=== PATIENT | female | born 1985 | race Caucasian/White ===

== ENCOUNTER 2024-03-10 13:28 | Outpatient (AMB) | payer OTHER, SELFPAY ==
[2024-03-10 13:29] VITALS: BP 102/67; PULSE 98; O2SAT 98; BMI 23.5
--- NOTE | 2024-03-10 13:29 | A.OFFVIS_ITS ---
Vital Signs 03/10/24 13:29 Height 5 ft 3 in Weight 132 lb 9.349 oz BMI 23.5 BP 102/67 Blood Pressure Location Lt brachial Position Sitting Pulse 98 Pulse Source Doppler Pulse Oximetry (%) 98 Oxygen Delivery Method Room Air Intake Visit Reasons: bertha Allergies No Known Allergies Allergy (Verified 03/10/24 13:32) HPI Comments Details: The patient is here for pulmonary evaluation. The patient is a 38-year-old woman who has been. Stay healthy until recently when she started noticing episodes of hypoxia primarily on her smart watch. The patient has been having daytime drowsiness and snoring so therefore she did undergo a sleep study back in 2022. At that point she was overweight. She has lost already like 30 lb since then. She is still having daytime drowsiness her Glen score is elevated 02/01. She became concerned also because she had evidence of hypoxia during the sleep study. I did reassure her that it is normal to get some degree hypoxia at nighttime. In the meantime the patient on exam does have some clubbing. We did talk about the accuracy of pulse oximeter through her smart watch and will try to find another way to confirm it. In the meantime we did go for brief walking oximetry. The heart rate did increase to about 116 but her pulse ox was stable at 98%. We also had her lay down and check her oximetry and ruled out orthodeoxia. [facility], LAT[facility] Medical History (Updated 03/10/24 @ 14:04 by Sang Andre MD) High dependence on smoking BERTHA (obstructive sleep apnea) Hypoxia Social History (Updated 03/10/24 @ 13:33 by MARI Chaves) Patient Tobacco Use Status: Current everyday Tobacco user Tobacco use type: Cigarette Cigarettes Per Day: 12 Review of Systems Const Reports daytime sleepiness, Reports snoring and Reports weight loss Eyes Reports no additional complaints ENT Reports nasal congestion Card Denies chest pain and Reports palpitations Resp Reports snoring and Denies wheezing GI Reports no additional complaints Musc Reports no additional complaints Skin/Breast Denies rash Neuro Reports no additional complaints Endo Reports palpitations Peter/Lymph Reports no additional complaints Aller/Immun Denies wheezing Physical Exam Vital Signs: Last Vital Signs Pulse 98 03/10/24 13:29 BP 102/67 03/10/24 13:29 Pulse Ox 98 03/10/24 13:29 Oxygen Delivery Method Room Air 03/10/24 13:29 BMI result Body Mass Index 23.5 Const General: comfortable HEENT Head: Yes normocephalic Neck Neck: Yes supple Chest Chest palpation & inspection: normal inspection of the chest Resp Effort & Inspection: normal respiratory effort Auscultation: clear to auscultation bilaterally Cardio Heart sounds: S1 normal heart sound present, S2 normal heart sound present and no murmurs GI Palpation (GI): Soft to palpation Skin General skin exam: no rashes or lesions noted Extrem General: Yes clubbing, No cyanosis and No edema Assessment & Plan Assessment & Plan (1) Hypoxia: Code(s): R09.02 - Hypoxemia Category: Medical (2) BERTHA (obstructive sleep apnea): Code(s): G47.33 - Obstructive sleep apnea (adult) (pediatric) Category: Medical (3) High dependence on smoking: Code(s): F17.200 - Nicotine dependence, unspecified, uncomplicated Category: Medical Plan Home sleep study ECHO with bubble to r/o R->L shunt CXR smoking cessation, she will start cutting down F/U 2 months Orders: Orders CA echo transthoracic complete 03/10/24 I27.20 - Pulmonary hypertension, unspecified RT home sleep study 03/10/24 G47.33 - Obstructive sleep apnea (adult) (pediatric), R09.02 - Hypoxemia XR chest 2V 03/10/24 G47.33 - Obstructive sleep apnea (adult) (pediatric), R09.02 - Hypoxemia Coding Level of Care Code New Pt Level 4 (61337) Diagnoses Hypoxia R09.02 BERTHA (obstructive sleep apnea) G47.33 High dependence on smoking F17.200 Time Spent (min) 40
--- OUTSIDE RECORDS SUMMARY | 2024-03-10 13:30 | XMS_ITS ---
Author Organization [facility] Address [address] [place] [address] Care Team Providers Care Bookbinder Apprentice Name Role Phone Geri NORMAN, Robert Primary Care Provider Unavail Adrianne Mitchell Unavailable [phone] Allergies No Known Allergies REASON FOR VISIT PCP-12/01, Open sore - Toe Medications Medication SIG (Take, Route, Frequency, Duration) Notes Start Date End Date Status clonazePAM 0.5 MG 1 tablet at bedtime Orally Once a day Not-Taking Famciclovir 500 MG 1 tablet Orally Twic e a day for 10 day(s) Active Escitalopram Oxalate 10 MG 1 tablet Orally Once a day for 30 day(s) Not-Taking Fluoxetine Active Social History Tobacco Use: Social History Observation Description Date Details (start date - stop date) Current Smoker 03/11/1999 - NA Tobacco Use/Smoking Question Answer Notes Are you a: current smoker When did you start smoking? 03/11/1999 Additional Findings: Tobacco User Moderate cigar ette smoker (10-19 cigs/day) Alcohol Screen Question Answer Notes Did you have a drink containing alcohol in the p ast year? No Points 0 Interpretation Negative Tobacco use other than smoking: Question Answer Notes Are you an other tobacco user? No Vital Signs Height 5 ft 3 in in 09/28/2022 Weight 157 lbs 09/28/2022 BMI 27.81 kg/m2 09/28/2022 Encounters Encounter Location Date Provider Diagnosis [facility] [address] [place] [address] 09/28/2022 Adrianne Matias Skin ulcer of toe of left foot, limited to breakdown of skin L97.521 Assessments Encounter Date Diagnosis (ICD Code) Assessment Notes Treatment Notes Treatment Clinical Notes Section Notes 09/28/2022 Skin ulcer of toe of left foot, limited to breakdown of skin (ICD-10 - L97.521) Patient Educated with: WOUND CARE INSTRUCTIONS.p df (WOUND CARE INSTRUCTIONS.p df) 09/28/2022 Other Plan Of Treatment Treatment Notes Assessment Notes Skin ulcer of toe of left fo ot, limited to breakdown of skin Patient Educated with: WOUND CARE INSTRUCTIONS.pdf (WOUND CARE INSTRUCTIONS.pdf) Next Appt Details Follow Up: prn, Reason: Procedure Notes * Category Sub-Category Detail Notes Debride skin< 25 sq cm Open wound Physician of record performed open wound selective debridement of first 25 sq cm or less, of devitilized necrotic/nonviable soft tissue, fibrin, and exudate extending from the epidermis through the dermis, utilizing sharp dissection with sterile 15 blade, and/or tissue nippers. Sterile antibiotic dressing applied, ANESTHESIA- was DEFERRED, Pt tolerant to pain, Hemostasis was achieved through direct pressure. Post debridement measurements: 2 mm x 1 mm x 2 mm. Character of the wound post debridement is stable (73951) , The patient is to cont the local wound care as directed till condition is completely healed Progress Notes * Alethea ARCEDOB:[birth year] (37 yo F)Acc No.[id number]:09/28/2022 Progress Notes Patient:?Alethea Arce Provider:?Adrianne Matias DPM :1985???Age:37 Y???Sex:Female D ate:09/28/2022 Address:[address] [place] [address], [place], [id number] Pcp:Robert Nevarez MD Subjective: * Chief Complaints: * ???PCP-12/01Open sore - Toe * HPI: ???Skin problems:?Treatments:?soaks , Topical abx.? * ROS:?General/Constitutional:?Nausea?denies.?Vomiting?denies.?Hunger Thirst?denies.?Loss appetite?denies.?Chills?denies.?Fatigue?denies.?Fever?denies.?Night Sweats?denies.?Unexplained weight loss?denies.?Unexplained weight gain?denies.?HEENTM:?Dentures?denies.?Dizziness?denies.?Glasses/contacts?denies.?Retinopathy?de nies.?Blurred/double vision?denies.?TMJ?denies.?Discharge/drainage?denies.?Implants?denies.?Sore throat?denies.?Dental implants?denies.?Hard of hearing ?denies.?Difficulty chewing/swallowing/speaking?denies.?Nose bleeds?denies.?Sore mouth?denies.?Respiratory:?On Oxygen?denies.?Pneumonia/pleurisy?denies.?Bronchitis?denies.?Emphysema?denies.?C oughing?denies.?Cough blood?denies.?Shortness of breath?denies.?Wheezing?denies.?Cardiovascular:?Pacemaker?denies.?MVP?denies.?WPW?denies.?CHF?denies.?Heart attack?denies.?Septal defect?denies.?Rapid beat?denies.?Chest pain ?denies.?Atrial Fib.?denies.?Murmur/Palpitations?denies.?Gastrointestinal:?Hemorrhoids?denies.?Stomach/Abdominal pain?denies.?Dark blood stool?denies.?Irritable bowel ?denies.?Constipation?denies.?Diarrhea?denies.?Hematology:?Swelling?denies.?Clots?denies.?Varicose Veins?denies.?Bruising?denies.?Bleeding problem?denies.?Genitourinary:?Blood urine?denies.?Frequent/Painfu/urination/bladder control?denies.?Kidney stones?denies.?Infection (UTI)?denies.?Nephropathy?denies.?sex trans dis (STD)?denies.?Prostate?denies.?Musculoskeletal:?Hammertoes?denies.?Bunions?denies.?Back Pain?denies.?Muscle Cramps/ Resting?denies.?Muscle cramps / walking?denies.?Generalized aches and pains?denies.?Weakness?denies.?Integ.:?Milton?denies.?Scars?denies.?Corns/calluses?denies.?Ingrown nails?denies.?Painful nails?denies.?Open Sores?denies.?Rashes?denies.?Neurologic:?Difficulty sleeping?denies.?Brain disorder?denies.?Numbness?denies.?Balance trouble?denies.?Confusion?denies.?Fainting/blackouts?denies.?Tingling?denies.?Tr emors?denies.? * Medical History:? * Surgical History:?Denies Pas t Surgical History * Hospitalization/Major Diagno stic Procedure:?Denies Past Hospitalization * Family History:?Mother: karey singleton?Maternal Grand Mother: diagnosed with Unspecified essential hypertension.?Maternal Grand Father: diagnosed with Diabetic - NIDDM, Unspecified essential hypertension.? * Social History:?Tobacco Use:?Tobacco Use/Smoking?Are you a:?current smoker ?When did you start smoking??03/11/1999 ?Additional Findings: Tobacco User?Moderate cigarette smoker (10-19 cigs/day) ?Tobacco use other than smoking?Are you an other tobacco user??No ???Drugs/Alcohol:?Drugs?Have you used drugs other than those for medical reasons in the past 12 months??No ?Alcohol Screen?Did you have a drink containing alcohol in the past year??No ?Points?0 ?Interpretation?Negative ???Miscellaneous:?Caffeine: yes, frequency:, 2-3 cups per day. ?Children: yes, 2. ?no Exercise. ?Marital status: partner. ?Occupation: Homemaker. * Medications:?TakingFluoxetin e Famciclovir 500 MG Tablet 1 tablet Orally Twice a dayTaking Fluoxetine Taking Famciclovir 500 MG Tablet 1 tablet Orally Twice a dayNot-Taking/PRNclonazePAM 0.5 MG Tablet 1 tablet at bedtime Orally Once a dayEscitalopram Oxalate 10 MG Tablet 1 tablet Orally Once a dayMedication List reviewed and reconciled with the patientNot-Taking/PRN clonazePAM 0.5 MG Tablet 1 tablet at bedtime Orally Once a dayNot-Taking/PRN Escitalopram Oxalate 10 MG Tablet 1 tablet Orally Once a dayMedication List reviewed and reconciled with the patient * Allergies:?N.K.D.A.yes[Aller gies Verified] Objective: * Vitals:?Ht: 5 ft 3 in, Wt:15 7, BMI:27.81, Shoe size: 7, Ht-cm: 160.02 cm, Wt-k.21 kg. * Examination: ???Dermatologic: ?ULCER:? LOCATION, medial TA, SIZE, 3 mm X 1 mm X 2mm, BASE, granular, RIM, hyperkeratotic, UNDERMINING, absent, TRACKING, Full thickness breakdown of skin, DRAINAGE, serosanguineous, mild, NECROTIC TISSUE, loosely-adherent, yellow slough, MALODOR, absent, CALOR, absent, ERYTHEMA, absent, PAIN ON PALPATION, none.? Assessment: * Assessment: 1.?Skin ulcer of toe of left foot, limited to breakdown of skin - L97.521, Response to treatment? Plan: * Treatment: * Procedures:?Debride skin< 25 sq cm:?Open wound?Physician of record performed open wound selective debridement of first 25 sq cm or less, of devitilized necrotic/nonviable soft tissue, fibrin, and exudate extending from the epidermis through the dermis, utilizing sharp dissection with sterile 15 blade, and/or tissue nippers. Sterile antibiotic dressing applied, ANESTHESIA- was DEFERRED, Pt tolerant to pain, Hemostasis was achieved through direct pressure. Post debridement measurements: 2 mm x 1 mm x 2 mm. Character of the wound post debridement is stable (58459) , The patient is to cont the local wound care as directed till condition is completely healed.? * Procedure Codes:?77527 ACTIV E WOUND CARE/20 CM OR <, Modifiers: XS * Preventive Medicine:? ??Counseling:?Ulcer:?Plan Of Care reviewed with the Pt, The patient was instructed on importance of proper wound care consisting of pressure reduction, maintainance of moist wound environment, The patient is to cleanse the wound with warm soapy water/peroxide/saline or betadine BID based on product availability , The patient is to apply Antibiotic Oint. to the wound and cover with a DSD , The patient was instructed to change dressings according to orders or PRN saturation, leaks, The patient was instructed to monitor and report any signs or symptoms of infection or any untoward reactions, Precautions Taken, Offloading/Pressure reduction via rest, cane, crutches, or knee scooter, Limited activity, Sharp debridement, Shoe modification, Padding, Topical medication as directed, Debridement frequency as indicated.? * Follow Up:?prn * Images: * Sign off status: Completed true * Provider:?Adrianne Matias DPM Date:? Generated for Abdi kumar/Michael/Krissitting on:?03/10/2024 01:30 PM EST History and Physical Notes * HPI (History of Present Illness) Category Sub-Category Detail Notes Category Not es Skin problems Treatments: soaks , Topical abx Examination Category Sub-Category Detail Notes Category Not es Dermatologic ULCER: LOCATION, medial TA, SIZE, 3 mm X 1 mm X 2mm, BASE, granular, RIM, hyperkeratotic, UNDERMINING, absent, TRACKING, Full thickness breakdown of skin, DRAINAGE, serosanguineous, mild, NECROTIC TISSUE, loosely-adherent, yellow slough, MALODOR, absent, CALOR, absent, ERYTHEMA, absent, PAIN ON PALPATION, none
--- OUTSIDE RECORDS SUMMARY | 2024-03-10 13:31 | XMS_ITS ---
Author Organization [facility] Address [address] [place] [address] Care Team Providers Care Ceramic Tile Installation Helper Name Role Phone Geri NORMAN, Robert Primary Care Provider Unavail Adrianne Mitchell Unavailable [phone] REASON FOR VISIT Booked incorrectly Encounters Encounter Location Date Provider Diagnosis [facility] [address] [place] [address] 09/13/2022 Adrianne Matias Plan Of Treatment No Information Progress Notes * Alethea ARCEDOB:[birth year] (37 yo F)Acc No.[id number]:09/13/2022 Patient:?ElsaAlethea perez :1985???Age:37 Y???Sex:Female [address] [place] [address] * true * Date:? Generated for Abdi kumar/Michael/eTransmitting on:?03/10/2024 01:30 PM EST
--- OUTSIDE RECORDS SUMMARY | 2024-03-10 13:31 | XMS_ITS ---
Author Organization [facility] Address [address] [place] [address] Care Team Providers Care Senior Stereo Compiler Team Lead Name Role Phone Geri NORMAN, Robert Primary Care Provider Unavail Adrianne Mitchell Unavailable [phone] Allergies No Known Allergies REASON FOR VISIT PCP-11/30, Ingrown nail Medications Medication SIG (Take, Route, Frequency, Duration) Notes Start Date End Date Status Escitalopram Oxalate 10 MG 1 tablet Orally Once a day for 30 day(s) Not-Taking Fluoxetine Active clonazePAM 0.5 MG 1 tablet at bedtime Orally Once a day Not-Taking Famciclovir 500 MG 1 tablet Orally Twic e a day for 10 day(s) Active Social History Tobacco Use: Social History [...] Signs Height 5 ft 3 in in 09/14/2022 Weight 157 lbs 09/14/2022 BMI 27.81 kg/m2 09/14/2022 Encounters Encounter Location Date Provider Diagnosis [facility] [address] [place] [address] 09/14/2022 Adrianne Perica Ingrown nail L60.0 and Pain in toe of left foot M79.675 Assessments Encounter Date Diagnosis (ICD Code) Assessment Notes Treatment Notes Treatment Clinical Notes Section Notes 09/14/2022 Ingrown nail (ICD-10 - L60.0) 09/14/2022 Pain in toe of left foot (ICD-10 - M79.675) Plan Of Treatment Next Appt Details Follow Up: prn, Reason: Procedure Notes * Category Sub-Category Detail Notes Matricectomy (OP NOTE) Consent The patie nt was brought to the examination room and placed on the table in a supine position. The pre/siena/postoperative course, risks, complications and alternatives were discussed, understood and accepted by the patient. No guarantees were given regarding the surgical outcome Procedure A digital prep with alcohol or betadine was performed. 3cc of 1 percent Xylocaine Plain local anesthetic was administered to the toe via digital block utilizing aseptic technique. A digital touriquet was applied. The affected toenail portion was undermined, incised and resected to the eponychium and matrix. It was noted to be significantly incurvated and hypertrophied. The nailbed and matrix were curetted and the nail groove, bed and matrix were cauterized with Phenol, 3 applications of 30 seconds each from a cotton tip applicator, no underling bone was identified. The surrounding skin was protected from the Phenol with Bacitracin ointment. The tourniquet was released and capillary fill time was intact to the digit. A sterile Bacitracin dressing was applied Disposition Disposition: The pat ient tolerated the procedure and anesthesia well and left in good condition, alert, oriented and stable in no acute distress. Local wound care instructions were discussed and dispensed. There were no complications and the prognosis is favorable, Recommended alternating/staggering Tylenol XS 2 tabs and Motrin 600mg q 6 hrs ea for discomfort, Rx narcotic postop pain meds were deferred Location Medial nail border , TA Progress Notes * CLAUDE AletheaDOB:[birth year] (37 yo F)Acc No.[id number]:09/14/2022 Progress Notes Patient:?Alethea Hunter Provider:?Adrianne Matias DPM :1985???Age:37 Y???Sex:Female D ate:09/14/2022 Address:[address] [place] [address] [address], [id number] Pcp:Robert Nevarez MD Subjective: * Chief Complaints: * ???PCP-11/30Ingrown nail * HPI: ???Ingrown toenail:?Location:?Great toe , Left foot.?Course:?recurrent.?Treatments:?PNA last year.? * ROS:?General/Constitutional:?Nausea?denies.?Vomiting?denies.?Hunger Thirst?denies.?Loss appetite?denies.?Chills?denies.?Fatigue?denies.?Fever?denies.?Night Sweats?denies.?Unexplained weight loss?denies.?Unexplained [...] 2-3 cups per day. ?Children: yes, 2. ?Marital status: partner. ?Occupation: Homemaker. * Medications:?TakingFluoxetin [...] Ht-cm: 160.02 cm, Wt-k.21 kg. * Examination: ???Ingrown Nail: ?INSPECTION:?Reveals incurvation, pain on palpation, groove hypertrophy , Medial nail border , TA.? Assessment: * Assessment: 1.?Ingrown nail - L60.0?2.?P ain in toe of left foot - M79.675? Plan: * Treatment: * Procedures:?Matricectomy (OP NOTE):?Location?Medial nail border , TA.?Consent?The patient was brought to the examination room and placed on the table in a supine position. The pre/siena/postoperative course, risks, complications and alternatives were discussed, understood and accepted by the patient. No guarantees were given regarding the surgical outcome.?Procedure?A digital prep with alcohol or betadine was performed. 3cc of 1 percent ?Xylocaine Plain local anesthetic was administered to the toe via digital block utilizing aseptic technique. A digital touriquet was applied. The affected toenail portion was undermined, incised and resected to the eponychium and matrix. It was noted to be significantly incurvated and hypertrophied. The nailbed and matrix were curetted and the nail groove, bed and matrix were cauterized with Phenol, 3 applications of 30 seconds each from a cotton tip applicator, no underling bone was identified. The surrounding skin was protected from the Phenol with Bacitracin ointment. The tourniquet was released and capillary fill time was intact to the digit. A sterile Bacitracin dressing was applied .?Disposition?Disposition: The patient tolerated the procedure and anesthesia well and left in good condition, alert, oriented and stable in no acute distress. Local wound care instructions were discussed and dispensed. There were no complications and the prognosis is favorable, Recommended alternating/staggering Tylenol XS 2 tabs and Motrin 600mg q 6 hrs ea for discomfort, Rx narcotic postop pain meds were deferred.? * Procedure Codes:?15113 REMOV AL OF NAIL BED * Follow Up:?prn * Images: * Sign off status: Completed true * Provider:?Adrianne Matias, KADEEM Date:?09/2022 Generated for Abdi kumar/Michael/Elin on:?03/10/2024 01:30 PM EST History and Physical Notes * HPI (History of Present Illness) Category Sub-Category Detail Notes Category Not es Ingrown toenail Location: Great toe , Left foot Treatments: PNA last year Course: recurrent Examination Category Sub-Category Detail Notes Category Not es Ingrown Nail INSPECTION: Reveals incurvat ion, pain on palpation, groove hypertrophy , Medial nail border , TA
--- OUTSIDE RECORDS SUMMARY | 2024-03-10 13:31 | XMS_ITS | Patient Health Record ---
Author Organization [facility] [place] Address [address] [place] [address] Care Team Providers Care Coremaking Machine Operator Name Role Phone Robert Nevarez MD Primary Care Provider Unavail Adrianne Mitchell Unavailable [phone] Allergies No Known Allergies Reason For Referral No Information Medications Medication SIG (Take, Route, Frequency, Duration) [...] Are you an other tobacco user? No Problems Problem Type SNOMED Code ICD Code Onset Dates Problem Status W/U Status Risk Notes Problem [id number] Non-pressure ulcer of left lower extremity, limited to breakdown of skin (L97.921) Active confirmed Problem 22465562 Non-pressure ulcer of right lower extremity, limited to breakdown of skin (L97.911) Active confirmed Plan Of Treatment No Information Insurance Providers Payer Name Payer Address Payer Phone Subscriber Number Group Number Insured Name Patient Relationship to Insured Coverage Start Date Coverage End Date [facility] [address] [place] [address] [phone] [id number] Blake Hunter Other Medical (General) History Medical History History ICD Code Anxiety CAD (Cholesterol) Depression Psoriasis/eczema Surgical History Surgery Date(Month/Year)
== END 2024-03-10 14:02 | disposition home or self-care (01) ==
PROVIDERS: PCP Pediatrics; Visit Provider Hospitalist
DX: R09.02 Hypoxemia (principal); G47.33 Obstructive sleep apnea (adult) (pediatric); F17.200 Nicotine dependence, unspecified, uncomplicated
CPT/HCPCS: 99204

== ENCOUNTER 2024-03-10 13:28 | Outpatient (REF) | payer OTHER, SELFPAY ==
--- NOTE | ~2024-03-10 | XR_ITS ---
EXAMINATION: XR CHEST 2 VIEWS HISTORY: G47.33 - Obstructive sleep apnea (adult) (pediatric) COMPARISON: There are no prior studies for comparison. FINDINGS: PA and lateral views of the chest are submitted. The lungs are expanded and clear. There is no pleural effusion, pneumothorax, or pulmonary vascular congestion. The heart is normal in size. The bones are intact. XR/XR chest 2V IMPRESSION: Normal examination of the chest. Electronically signed by: Urban Newby MD 03/20/2024 02:20 PM [place]
== END 2024-03-10 13:29 | disposition home or self-care (01) ==
LOC: HO.XRAY 13:28
PROVIDERS: PCP Pediatrics; Visit Provider Hospitalist
DX: G47.33 Obstructive sleep apnea (adult) (pediatric) (principal); R09.02 Hypoxemia
CPT/HCPCS: 71046

== ENCOUNTER → 2024-03-10 14:11 | Outpatient (BNV) | payer OTHER, SELFPAY | PROVIDERS: PCP Pediatrics; Visit Provider Radiology Diagnostic Radiology | DX: G47.33 Obstructive sleep apnea (adult) (pediatric) (principal) | CPT/HCPCS: 71046 ==

== ENCOUNTER → 2024-03-23 07:52 | Outpatient (REF) | payer OTHER, SELFPAY ==
--- OUTSIDE RECORDS SUMMARY | 2024-03-23 07:54 | XMS_ITS | Patient Health Record ---
Author Organization [facility] [place] Address [address] [facility] [place] [address] Care Team Providers Care Brazing Furnace Operator Name Role Phone Robert Nevarez MD Primary Care Provider Unavail Adrianne Mitchell Unavailable [phone] Allergies No Known Allergies Reason For Referral [...] Problem Status W/U Status Risk Notes Problem [id number] Non-pressure ulcer of left lower extremity, limited to breakdown of skin (L97.921) Active confirmed Problem 42033617 Non-pressure ulcer of right lower extremity, limited to breakdown of skin (L97.911) Active confirmed Plan Of Treatment No Information Insurance Providers Payer Name Payer Address Payer Phone Subscriber Number Group Number Insured Name Patient Relationship to Insured Coverage Start Date Coverage End Date [facility] [address] [place] [address] [phone] [id number] Blake Hunter Other Medical (General) History Medical History History ICD Code Anxiety CAD (Cholesterol) Depression Psoriasis/eczema Surgical History Surgery Date(Month/Year)
--- NOTE | 2024-03-23 07:57 | CA_ITS ---
Transthoracic Echocardiogram Patient (Last, First, Middle): Alethea Hunter N Gender: Female Date of : 1985 Age: 38 Procedure Date: 03/23/2024 Procedure Type: Transthoracic Echocardiogram Location: OP Height: 160.02 cm Weight: 60.33 kg BSA: 1.63 m2 Heart Rate: bpm BP: 116 / 78 mmHg Accountant Clerk: HELEN Referring MD: Sang Andre MD Symptoms: I27.20 - Pulmonary hypertension, unspecified Study Quality: Adequate ECG Rhythm: Sinus Conclusions: - The left ventricular systolic function is normal. The calculated ejection fraction is 57% by biplane method. - Bubble study positive during rest and valsalva, suggestive of interatrial shunt. - No obvious valvular pathology seen on this study. - There is no evidence of pulmonary hypertension. Findings Left Ventricle Normal left ventricular cavity size. There is normal left ventricular wall thickness. The left ventricular systolic function is normal. The calculated ejection fraction is 57% by biplane method. There is no evidence of regional wall motion abnormalities. Diastolic function is normal for age. Right Ventricle Normal right ventricular cavity size and systolic function. Atria Both atria are normal in size. Bubble study positive during rest and valsalva, suggestive of interatrial shunt. Aortic Valve The aortic valve was not well visualized. There is no aortic valve stenosis. There is no aortic valve regurgitation. Mitral Valve The mitral valve appears normal. There is trace mitral valve regurgitation. There is no mitral valve stenosis. Pulmonic Valve The pulmonic valve is likely normal. Tricuspid Valve There is mild tricuspid valve regurgitation. There is no evidence of pulmonary hypertension. Great Vessels The asc aorta is normal in size. Venous The inferior vena cava is normal in size and collapses greater than 50% with inspiration. Pericardium/Pleural There is no evidence of pericardial effusion. Prior Study Comparison No prior study available for comparison. Recommendations, Care & Conclusions No obvious valvular pathology seen on this study. Measurements 2D Linear Measurements IVSd: 0.75 0.6-0.9/0.6-1.0 cm LVIDd: 4.34 3.9-5.3/4.2-5.9 cm LVIDd Index: 2.66 2.4-3.2/2.2-3.1 cm/m2 LVIDs: 3.12 2.0-3.6 cm LVPWd: 0.69 0.7-1.1 cm LA Diam: 3.20 2.7-3.8/3.0-4.0 cm LAIDs Index: 1.96 1.5-2.3 cm/m2 LV Mass: 115.39 67-162/88-224 g LV Mass Index: 70.79 43-95/49-115 g/m2 LVOT Diam: 1.90 3.0+(-)1.3 cm 2D Systolic Function EF 4C: 57.20 >55% EF 2C: 58.80 >55% EF BiP: 56.70 >55% Mitral Valve MV Pk E: 0.95 MV PK A: 0.69 MV Decel Time: 172.00 E/A: 1.40 E'Lateral: 11.10 E'Medial: 10.30 E/E' Med: 9.20 E/E' Lat: 8.50 PHT: 50.00 MVA PHT: 4.40 Decel Bibb: 5.52 Aortic Valve AoV Pk Romeo: 1.42 AoV Mn Romeo: 1.06 AoV VTI: 0.30 AoV Pk Grad: 8.00 Aov Mn Grad: 5.00 BETTYE Cont.VTI: 2.29 LVOT LVOT Pk Romeo: 1.17 LVOT Mn Romeo: 0.88 LVOT VTI: 0.25 LVOT Pk Grad: 5.00 LVOT Mn Grad: 3.00 LVOT Diam: 1.90 LVOT Area: 2.84 Diastolic Function MV Pk E: 0.95 MV Pk A: 0.69 E/A: 1.40 E'Medial: 10.30 E/E' Med: 9.20 E' Laterial: 11.10 E/E' Lat: 8.50 Right Ventricle TAPSE (mm): 22.30 TVS' Romeo: 12.30 Tricuspid Valve TR Pk Romeo: 2.29 TR Pk Grad: 21.00 RA Press: 3.00 RVSP: 24.00 Great Vessels Aorta Sinus of Valsalva: 2.75 2.0-3.[address] Ridge: 2.13 1.7-3.4 cm Ao Asc: 2.60 2.1-3.4 cm Updated in Other Vendor System with Status of Final Aaron Staley MD electronically signed on 03/23/2024 2:04:36 PM with status of Final
== END ==
LOC: HO.CARD 07:52
PROVIDERS: PCP Pediatrics; Visit Provider Hospitalist
DX: I27.20 Pulmonary hypertension, unspecified (principal); R09.02 Hypoxemia
CPT/HCPCS: 93306

== ENCOUNTER → 2024-03-23 07:57 | Outpatient (BNV) | payer OTHER, SELFPAY | PROVIDERS: PCP Pediatrics; Visit Provider Internal Medicine | DX: Q21.10 Atrial septal defect, unspecified (principal) | CPT/HCPCS: 93303; 93320; 93325 ==

== ENCOUNTER → 2024-06-17 15:52 | Outpatient (REF) | payer OTHER, SELFPAY | LOC: HO.SL 15:52 | PROVIDERS: PCP Pediatrics; Visit Provider Hospitalist | DX: G47.33 Obstructive sleep apnea (adult) (pediatric) (principal); R09.02 Hypoxemia | CPT/HCPCS: 95806 ==

== ENCOUNTER → 2024-06-18 16:04 | Outpatient (BNV) | payer OTHER, SELFPAY | PROVIDERS: PCP Pediatrics; Visit Provider Internal Medicine | DX: R06.83 Snoring (principal) | CPT/HCPCS: 95806 ==

== ENCOUNTER 2024-09-07 15:43 | Outpatient (REF) | payer OTHER, SELFPAY ==
[2024-09-07 16:40] LABS: MANUAL DIFF FLAG NO
[2024-09-07 16:45] LABS: Venous Blood Gas Refer to POC result
[2024-09-07 16:48] LABS: VBG pCO2 41 mmHg; VBG pH 7.42 (7.32-7.43); VBG pO2 38 mmHg
[2024-09-07 16:49] LABS: VBG Base Excess 2.8 mmol/L; VBG HCO3 27 mmol/L (22-26)
[2024-09-07 17:07] LABS: Basophils Percent Auto 0.3 % (0-2); Eosinophils Absolute Auto 0.2 X10*3/uL (0.0-0.4); Eosinophils Percent Auto 2.1 % (0-4); Hematocrit 40.2 % (37.0-47.0); Hemoglobin 13.9 g/dl (12.0-16.0); Imm Gran Abs Auto 0.01 X10*3/uL (0.00-0.03); Imm Gran Pct Auto 0.1 % (0.0-0.4); Lymphocytes Absolute Auto 3.2 X10*3/uL (1.2-4.9); Lymphocytes Percent Auto 34.4 % (20-40); Mean Corpuscular HGB Conc 34.6 g/dl (31.0-35.0); Mean Corpuscular Volume 92.6 fL (80.0-98.0); Mean Platelet Volume 10.1 fL (9.4-12.3); Monocytes Absolute Auto 0.5 X10*3/uL (0.1-1.2); Monocytes Percent Auto 5.4 % (2-11); Neutrophils Absolute Auto 5.3 x10*3/uL (2.0-8.3); Neutrophils Percent Auto 57.7 % (45-73); Platelet Count 247 X10*3/uL (160-400); Red Blood Count 4.34 X10*6/uL (4.20-5.50); Red Cell Distribution Width 12.9 % (11.0-16.0); White Blood Count 9.3 X10*3/uL (4.8-10.8)
== END 2024-09-07 15:44 | disposition home or self-care (01) ==
LOC: HO.LAB 15:43
PROVIDERS: PCP Pediatrics; Visit Provider Hospitalist
DX: R09.02 Hypoxemia (principal); G47.33 Obstructive sleep apnea (adult) (pediatric)
CPT/HCPCS: 36415; 82803; 85025

== ENCOUNTER 2024-09-07 15:43 | Outpatient (AMB) | payer OTHER, SELFPAY ==
--- NOTE | 2024-09-07 15:45 | MHC.OFFVIS ---
Vital Signs 09/07/24 15:46 Height 5 ft 3 in Weight 135 lb 9.349 oz BMI 24.0 BP 96/56 L Blood Pressure Location Lt brachial Pulse 94 Pulse Source Pulse Oximeter Pulse Oximetry (%) 98 Oxygen Delivery Method Room Air Intake Visit Reasons: bertha Telephone Answerer Required: No Accompanied by: Self / Same As Patient Allergies No Known Allergies Allergy (Verified 09/07/24 15:48) HPI Comments Details: The patient is a 39 year-old woman who has been. Stay healthy until recently when she started noticing episodes of hypoxia primarily on her smart watch. The patient has been having daytime drowsiness and snoring so therefore she did undergo a sleep study back in 2022. At that point she was overweight. She has lost already like 30 lb since then. She is still having daytime drowsiness her [place] score is elevated 11/24. She became concerned also because she had evidence of hypoxia during the sleep study. I did reassure her that it is normal to get some degree hypoxia at nighttime. In the meantime the patient on exam does have some clubbing. We did talk about the accuracy of pulse oximeter through her smart watch and will try to find another way to confirm it. In the meantime we did go for brief walking oximetry. The heart rate did increase to about 116 but her pulse ox was stable at 98%. We also had her lay down and check her oximetry and ruled out orthodeoxia. 09/07/2024 the patient is here for a pulmonary follow-up visit. Overall the patient has been doing okay. She still having those hypoxic episodes at nighttime when she is awake prior to going to bed. She did undergo a transesophageal echo to assess further or jyhly-yq-fzjt shunt. 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 It was documented that she did have a small ktkiw-gs-sxkl shunt due to a very small PFO. The dcwtc-qt-opny shunt was seen at rest and also with Valsalva maneuver. Explained to her that indeed some these oxygenating blood is getting through unlikely affecting her pulse ox some but not as much as she has been documented. In the meantime she does have some daytime drowsiness with an elevated [place] score of 11/24. She did have a home sleep study. No evidence of any significant sleep apnea although she did desaturate down to 85% and she spent more than 11 minutes below 88%. Therefore will go ahead and request an in-lab sleep study to better address his and also request end-tidal CO2 to monitor for any evidence of hypo ventilation. In addition to that we talked about perform pulmonary function studies to assess her gas exchange in extrinsic function of the lungs as far as her diffusing capacity. The patient also should undergo blood work. At this point will start with a venous gas to assess her pCO2. If indeed is abnormal will consider doing an ABG to assess her partial pressure of oxygen as well. If indeed we are concerned about the amzzh-vi-jlfr shunt we can always request a perfusion scan quantitative to assess the amount of potential shunting. For now we did talk about deep breathing exercises at nighttime. The patient will sleep on her side and avoid sleeping on her back to minimize the obstruction. After her PFTs in her sleep study she will follow-up for an appointment. If her blood work is abnormal I will call her for any additional recommendations then. [facility] Medical History (Updated 09/07/24 @ 22:48 by Sang Andre MD) PFO (patent foramen ovale) Nocturnal hypoxia High dependence on smoking BERTHA (obstructive sleep apnea) Hypoxia Social History Patient Tobacco Use Status: Current everyday Tobacco user Tobacco use type: Cigarette Cigarettes Per Day: 12 Review of Systems Const Reports daytime sleepiness, Reports snoring and Reports weight loss Eyes Reports no additional complaints ENT Reports nasal congestion Card Denies chest pain and Reports palpitations Resp Reports snoring and Denies wheezing GI Reports no additional complaints Musc Reports no additional complaints Skin/Breast Denies rash Neuro Reports no additional complaints Endo Reports palpitations Peter/Lymph Reports no additional complaints Aller/Immun Denies wheezing Physical Exam Vital Signs: Last Vital Signs Pulse 94 09/07/24 15:46 BP 96/56 L 09/07/24 15:46 Pulse Ox 98 09/07/24 15:46 Oxygen Delivery Method Room Air 09/07/24 15:46 BMI result Body Mass Index 24.0 Const General: comfortable HEENT Head: Yes normocephalic Neck Neck: Yes supple Chest Chest palpation & inspection: normal inspection of the chest Resp Effort & Inspection: normal respiratory effort Auscultation: clear to auscultation bilaterally Cardio Heart sounds: S1 normal heart sound present, S2 normal heart sound present and no murmurs GI Palpation (GI): Soft to palpation Skin General skin exam: no rashes or lesions noted Extrem General: Yes clubbing, No cyanosis and No edema Assessment & Plan Assessment & Plan (1) Hypoxia: Code(s): R09.02 - Hypoxemia Category: Medical (2) BERTHA (obstructive sleep apnea): Code(s): G47.33 - Obstructive sleep apnea (adult) (pediatric) Category: Medical (3) High dependence on smoking: Code(s): F17.200 - Nicotine dependence, unspecified, uncomplicated Category: Social Hx (4) Nocturnal hypoxia: Code(s): G47.34 - Idiopathic sleep related nonobstructive alveolar hypoventilation Category: Medical (5) PFO (patent foramen ovale): Comment: small with small right to left shunt Code(s): Q21.12 - Patent foramen ovale Category: Medical Plan ECHO with bubble with small R->L shunt. Will f/u with Cardiology for further recs smoking cessation inlab sleep study at [facility] with endtidal CO2 monitoring for central hypoventilation Bloodwork, VBG if abnormal ABG PFTs start Deep breathing exercises F/U 3 months Orders: Orders Venous Blood Gas Today G47.33 - Obstructive sleep apnea (adult) (pediatric), R09.02 - Hypoxemia Complete Blood Count Auto Diff Today G47.33 - Obstructive sleep apnea (adult) (pediatric), R09.02 - Hypoxemia PFT pulmonary function test Today G47.33 - Obstructive sleep apnea (adult) (pediatric), R09.02 - Hypoxemia RT PSG in-lab sleep study Today G47.33 - Obstructive sleep apnea (adult) (pediatric), G47.34 - Idiopathic sleep related nonobstructive alveolar hypoventilation, R09.02 - Hypoxemia Coding Level of Care Code Est Pt Level 5 (39553) Diagnoses Hypoxia R09.02 BERTHA (obstructive sleep apnea) G47.33 High dependence on smoking F17.200 Nocturnal hypoxia G47.34 PFO (patent foramen ovale) Q21.12 Time Spent (min) 60
--- OUTSIDE RECORDS SUMMARY | 2024-09-07 15:45 | XMS_ITS | Patient Health Record ---
Author Organization [facility] [place] Address [address] [place] [address] Care Team Providers Care Geriatric Physical Therapist Name Role Phone Robert Nevarez MD Primary Care Provider Unavail Adrianne Mitchell Unavailable [phone] Allergies No Known Allergies Reason For Referral No Information Medications Medication SIG (Take, Route, Frequency, Duration) Notes Start Date End Date Status clonazePAM 0.5 MG 1 tablet at bedtime Orally Once a day Not-Taking Famciclovir 500 MG 1 tablet Orally Twic e a day; Duration: 10 day(s) Active Escitalopram Oxalate 10 MG 1 tablet Orally Once a day; Duration: 30 day(s) Not-Taking Fluoxetine Active Social History [...] Problem Status W/U Status Risk Notes Problem Non-pressure ulcer of left lower extremity, limited to breakdown of skin (L97.921) Active confirmed Problem Non-pressure ulcer of right lower extremity, limited to breakdown of skin (L97.911) Active confirmed Plan Of Treatment No Information Insurance Providers Payer Name Payer Address Payer Phone Subscriber Number Group Number Insured Name Patient Relationship to Insured Coverage Start Date Coverage End Date [facility] [address] [place] [address] [phone] [id number] Blake Hunter Other Medical (General) History Medical History History ICD Code Anxiety CAD (Cholesterol) Depression Psoriasis/eczema Surgical History Surgery Date(Month/Year)
[2024-09-07 15:46] VITALS: BP 96/56; PULSE 94; O2SAT 98; BMI 24.0
== END 2024-09-07 16:20 | disposition home or self-care (01) ==
LOC: HO.HPS 15:43
PROVIDERS: PCP Pediatrics; Visit Provider Hospitalist
DX: R09.02 Hypoxemia (principal); G47.33 Obstructive sleep apnea (adult) (pediatric); F17.200 Nicotine dependence, unspecified, uncomplicated; G47.34 Idiopathic sleep related nonobstructive alveolar hypoventilation; Q21.12 Patent foramen ovale
CPT/HCPCS: 99215

== ENCOUNTER 2024-12-03 12:53 | Outpatient (REF) | payer OTHER, SELFPAY ==
--- NOTE | 2024-12-03 12:57 | PFT_ITS ---
Flows: FEV1: 105 % of predicted at 3.08 L FVC: 102 % of predicted at 3.62 L FEV1/FVC: 85 % Bronchodilator response: Absent Volumes: Total lung capacity: 98 % of predicted at 4.96 L Residual volume: 105 % of predicted at 1.31 L Slow vital capacity: 96 % of predicted at 3.65 L Expiratory reserve volume: 82 % of predicted at 0.97 L Diffusion capacity: Normal Impression: No obstructive or restrictive ventilatory defect. No bronchodilator response. Normal pulmonary function test. MTDD
[2024-12-03 13:44] VITALS: PULSE 81; O2SAT 98
--- OUTSIDE RECORDS SUMMARY | 2024-12-03 17:37 | XMS_ITS | Patient Health Record ---
Author Organization [facility] [place] Address [address] [address] Care Team Providers Care Small Arms Artillery Repairer Name Role Phone Robert Nevarez MD Primary Care Provider Unavail Adrianne Mitchell Unavailable [phone] Allergies No Known Allergies Reason For Referral [...] Insured Coverage Start Date Coverage End Date [facility] [address] [place] [address] [phone] [id number] Blake Hunter Other Medical (General) History Medical History History ICD Code Anxiety CAD (Cholesterol) Depression Psoriasis/eczema Surgical History Surgery Date(Month/Year)
--- OUTSIDE RECORDS SUMMARY | 2024-12-03 17:37 | XMS_ITS ---
Author Name Dae Lopez Address Unknown Organization [facility] Care Team Providers Care Dag Sprayer Name Role Phone Unavailable Primary Care Physician Unavailab le History Of Present Illness This is a 39 year old female who is an established patient who is being seen for an evaluation of skin lesions.Location: body throughoutDuration: yearsPertinent History: actinic keratosesPertinent Negatives: unsure of historyAdditional Visit Reasons: education and counseling about sun exposure, evaluation for suspicious growths, and evaluation of current neviAdditional History: Patient presents for CSE Allergies, Adverse Reactions, Alerts Substance RxNorm Reaction(s) Severity Status Start Da te nickel [id number] Weal unspecified active 10/14/19 25 Medications Medication Generic Name RxNorm Strength Strength Unit Route Dose Dose Form Frequency Date Started Date Ended Status Indication Sig Finacea azelaic acid 9008027 15 % Topica l gel 02/14/20 22 suspend ed Appl y to affe cted area s on face bud y PM ketoconazol e ketocona zole 445278 2 % Topica l cream 04/18/19 21 suspend ed Appl y to affe cted body area bud y to twic e bud y for 2 week s. ketoconazol e ketocona zole 264471 2 % Topica l shamp oo BIW 10/20/19 21 suspend ed Appl y to affe cted area s on body QD for 2 week s or unti l angela r. Lath er and rins e afte r 3-5 min. Ok to use on face and scal p also . May repe at as need ed. metronidazo le metronid azole 111886 0.75 % Topica l cream 02/14/20 22 suspend ed Appl y pea size d amou nt to affe cted area s on face in the am. selenium sulfide selenium sulfide 372231 2.25 % Topica l shamp oo 04/18/19 21 suspend ed Appl y to affe cted area bud y for 2 week s. Lath er and rins e afte r 5 min. May repe at as need ed. triamcinolo ne acetonide triamcin olone acetonid e 8803584 0.1 % Topica l cream BID 04/18/19 21 suspend ed Appl y as need ed twic e bud y to affe cted rash for up to 2 week s, then take 1 week off. May repe at as need ed. Avoi d face , axil la and groi n/ge yenni l area s. famciclovir famciclo vir 250 mg Oral 1 table t qd active Abilify NULL 05/03/19 09 active ACZONE 5 % GEL NULL 04/21/19 16 active ACZONE 5 % GEL NULL 05/18/19 16 active DESONIDE .05 % CREA NULL 05/17 16 active DESONIDE .05 % CREA NULL 05/17 16 active DOXYCYCLINE MONOHYDRATE 100 MG CAPS NULL 04/11 03/30 16 active DOXYCYCLINE MONOHYDRATE 100 MG CAPS NULL 11/28 16 active Extina NULL 05/03/19 09 active Famciclovir NULL 07/08/19 16 active FAMCICLOVIR 500 MG TABS NULL 04/11 03/30 16 active FAMCICLOVIR 500 MG TABS NULL 11/28 16 active LaMICtal NULL 05/03/19 09 active MonoNessa NULL 07/08/19 16 active MONONESSA .25-35 MG-MCG TABS NULL 11/28 16 active MONONESSA .25-35 MG-MCG TABS NULL 04/11 03/30 16 active MONONESSA .25-35 MG-MCG TABS NULL 11/28 16 active MONONESSA .25-35 MG-MCG TABS NULL 04/11 03/30 16 active MONONESSA .25-35 MG-MCG TABS NULL 11/28 16 active MONONESSA .25-35 MG-MCG TABS NULL 04/11 03/30 16 active MONONESSA .25-35 MG-MCG TABS NULL 11/28 16 active MONONESSA .25-35 MG-MCG TABS NULL 04/11 03/30 16 active MONONESSA .25-35 MG-MCG TABS NULL 11/28 16 active MONONESSA .25-35 MG-MCG TABS NULL 04/11 03/30 16 active MONONESSA .25-35 MG-MCG TABS NULL 11/28 16 active MONONESSA .25-35 MG-MCG TABS NULL 04/11 03/30 16 active SF 5000 Plus NULL 07/08/19 16 active SF 5000 PLUS 1.1 % CREA NULL 04/21/19 16 active SF 5000 PLUS 1.1 % CREA NULL 05/18/19 16 active Suboxone NULL 07/08/19 16 active SUBOXONE 2-0.5 MG FILM NULL 04/21/19 16 active SUBOXONE 2-0.5 MG FILM NULL 05/18/19 16 active SUBOXONE 2-0.5 MG FILM NULL 04/21/19 16 active SUBOXONE 2-0.5 MG FILM NULL 05/18/19 16 active SUBOXONE 2-0.5 MG FILM NULL 04/21/19 16 active Triamcinolo ne Acetonide NULL 16 active Vistaril NULL 05/03/19 09 active Problems Problem Code Type Status Date of Diagnosis Date of Resolution Seborrheic keratosis (disorder) 967066586(S NOMED) Diagnosis active 12/02/2024 Melanocytic nevus of right upper limb (disorder) 587062177(S NOMED) Diagnosis active 12/02/2024 Melanocytic nevus of right lower limb (disorder) 95153246581 9108(SNOMED ) Diagnosis active 12/02/2024 Rosacea (disorder) 605580932(S NOMED) Diagnosis active 12/02/2024 Benign neoplasm of skin of right lower limb (disorder) 39923873757 70214(SNOME D) Diagnosis active 12/02/2024 Hemangioma of skin and subcutaneous tissue (disorder) 367683912(S NOMED) Diagnosis active 12/02/2024 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) 46426373(SN OMED) Diagnosis active 10/13/2024 Patient encounter status (finding) 907010165(S NOMED) Diagnosis active 01/14/2023 Rosacea (disorder) 104803576(S NOMED) Diagnosis active 12/25/2022 Seborrheic keratosis (disorder) 602422333(S NOMED) Diagnosis active 11/29/2022 Disorder of pigmentation (disorder) 787011499(S NOMED) Diagnosis active 11/29/2022 Melanocytic nevus (disorder) 459536760(S NOMED) Diagnosis active 11/29/2022 Hemangioma of skin and subcutaneous tissue (disorder) 727980563(S NOMED) Diagnosis active 11/29/2022 Benign neoplasm of skin of trunk (disorder) 55271539(SN OMED) Diagnosis active 11/29/2022 Rosacea (disorder) 214710242(S NOMED) Diagnosis active 11/29/2022 Post-inflammatory hyperpigmentation (disorder) 933838509(S NOMED) Diagnosis active 11/29/2022 Rosacea (disorder) 898499707(S NOMED) Diagnosis active 11/06/2022 Patient encounter status (finding) 197681300(S NOMED) Diagnosis active 07/13/2022 Rosacea (disorder) 982561251(S NOMED) Diagnosis active 02/13/2022 Hemangioma of skin and subcutaneous tissue (disorder) 827687299(S NOMED) Diagnosis active 02/13/2022 Hemangioma of skin and subcutaneous tissue (disorder) 487220731(S NOMED) Diagnosis active 10/19/2020 Pityriasis versicolor (disorder) 35363096(SN OMED) Diagnosis active 10/19/2020 Hemangioma of skin and subcutaneous tissue D18.01(ICD- 10) Diagnosis active 04/18/2020 Other rosacea L71.8(ICD-1 0) Diagnosis active 04/18/2020 Pityriasis versicolor B36.0(ICD-1 0) Diagnosis active 04/18/2020 Disorder of the skin and subcutaneous tissue, unspecified L98.9(ICD-1 0) Diagnosis active 04/18/2020 Other melanin hyperpigmentation L81.4(ICD-1 0) Diagnosis active 04/18/2020 Other benign neoplasm of skin of trunk D23.5(ICD-1 0) Diagnosis active 04/18/2020 Melanocytic nevus of trunk (disorder) 695184381(S NOMED) Diagnosis active 04/07/2015 Anxiety disorder (disorder) 059614482(S NOMED) Problem active History of clinical finding in subject (situation) 306175230(S NOMED) Problem active Actinic keratosis (disorder) 924301463(S NOMED) Problem active Eczema (disorder) 96006668(SN OMED) Problem active Rosacea (disorder) 780505088(S NOMED) Problem active Results No data Encounters Service provided at [facility], [address] [place] [address], [address], [place], [place] [id number]. Office phonenumber is [phone]. Office fax number is [phone]. Encounter Diagnosis Location Date / Time Type Seborrheic Keratoses (L82.1) Congenital Nevus (D22.61)Acral Nevus (D22.71)Rosacea (L71.8)Dermatofibroma (D23.71)Dennis Angiomas (D18.01)Angioma (D18.01)[facility] () [facility] 12/02/2024 15:00:00 [facility] [id number] Reason For Referral No data Procedures Procedure Date Documentation of current medications (pr ocedure) 12/02/2024 12:00 am UTC Documentation of current medications (pr ocedure) 10/13/2024 12:00 am [place] Shave biopsy (procedure) 10/13/2024 12:0 0 am UTC Documentation of past medical history (p rocedure) Review Of Systems Provider reviewed on Dec 02, 2024.A focused review of systems was performed including Integumentary.No Problems With Healing And No Problems With Scarring (hypertrophic Or Keloid). Assessment 1.Seborrheic KeratosesCounseling2.Congenital NevusCounseling3.Acral NevusCounseling4.RosaceaCounselingPatient Specific Counseling: - Patient had laser treatment with ESW. Patient states has helped some. No erythema noted on exam today..5.DermatofibromaCounseling6.Dennis AngiomasReassuranceCounseling 7.AngiomaCounseling8.MIPSMIPS Quality Plan of Care Future visit PRN - Follow up PRN Code Detail Instructions [id number] Finacea 15 % topical gel Apply t o affected areas on face daily PM 098980 metronidazole 0.75 % topical cre am Apply pea sized amount to affected areas on face in the am. 685306 ketoconazole 2 % shampoo Apply t o affected areas on body QD for 2 weeks or until clear. Lather and rinse after 3-5 min. Ok to use on face and scalp also. May repeat as needed. 8055178 triamcinolone aceton devante 0.1 % topical cream Apply as needed twice daily to affected rash for up to 2 weeks, then take 1 week off. May repeat as needed. Avoid face, axilla and groin/genital areas. 208696 selenium sulfide 2.25 % shampoo Apply to affected area daily for 2 weeks. Lather and rinse after 5 min. May repeat as needed. 282373 ketoconazole 2 % topical cream A pply to affected body area daily to twice daily for 2 weeks. Instructions * I counseled the patient regarding the following:Skin Care: Seborrheic Keratoses are benign. No treatment is necessary.Expectations: Seborrheic Keratoses are benign warty growths. Patients get more ofthem as they age. No treatment is necessary.Notify clinic if lesions begin to bleed or become painful. Or if there is re growth of this lesion. * I counseled the patient regarding the following:Instructions: Monthly self- skin checks to monitor for any changes in moles are recommended.Expectations: Congenital Nevus are pigmented nests of cells within the skin. No treatment is necessary.Contact Office if: Any moles change in size, shape or color; itch, burn or bleed. * I counseled the patient regarding the following:Expectations: Benign Nevi are pigmented nests of cells within the skin.Contact Office if: Any moles change in size, shape or color; itch, burn or bleed.I recommended the following: Broad Spectrum Sunscreen SPF 30+Self-Skin Exams * I counseled the patient regarding the following:Skin care: Patient instructed to wear broad spectrum sunscreen.Expectations: Rosacea is chronic. Flushing and pimples can be triggered by: alcohol, stress, exercise, hot temperatures or spicy foods, wind and sun exposure. Telangiectasias can be improved with laser, or Mirvaso or Rhofade topicals.Contact office if: Rosacea worsens or fails to improvedespite months of treatment; patient develops nodules or cysts. * Patient had laser treatment with ESW. Patient states has helped some. No erythema noted on exam today. * I counseled the patient regarding the following:Skin care: Dermatofibromas are benign. They should be surgically removed if symptomatic or if they grow.Expectations: Dermatofibromas are stable scar-like nodules, usually located on the lower extremities. * I counseled the patient regarding the following:Skin Care: Dennis Angiomas can resolve with lasers or electrodesiccation.Expectations: Dennis Angiomas are benign vascular growths. No treatment is necessary. * I counseled the patient regarding the following:Skin Care: Angiomas can resolve with lasers or electrodesiccation.Expectations: Angiomas are benign vascular growths. No treatment is necessary. Social History Code Activity Start Date End Date [id number] (SNOMED) Current every day smoker Sex female Sexual orientation Unspecified Gender identity Unspecified Vital Signs No data
== END 2024-12-03 12:54 | disposition home or self-care (01) ==
LOC: HO.RESP 12:53
PROVIDERS: PCP Pediatrics; Visit Provider Hospitalist
DX: R09.02 Hypoxemia (principal); G47.33 Obstructive sleep apnea (adult) (pediatric)
CPT/HCPCS: 94010; 94640; 94727; 94729

== ENCOUNTER 2024-12-03 13:42 | Outpatient (AMB) | payer OTHER, SELFPAY ==
[2024-12-03 14:29] VITALS: BP 106/64; PULSE 82; O2SAT 99; BMI 24.0
--- NOTE | 2024-12-03 14:29 | A.OFFVIS_ITS ---
Vital Signs 12/03/24 14:29 Height 5 ft 3 in Weight 135 lb 9.349 oz BMI 24.0 BP 106/64 Blood Pressure Location Lt brachial Position Sitting Pulse 82 Pulse Source Pulse Oximeter Pulse Oximetry (%) 99 Oxygen Delivery Method Room Air Intake Visit Reasons: Obstructive sleep apnea Wallcovering Hanger Required: No Accompanied by: Self / Same As Patient Allergies No Known Allergies Allergy (Verified 12/03/24 14:31) HPI Comments Details: The patient is a 39 year-old woman who has been. Stay healthy until recently when she started noticing episodes of hypoxia primarily on her smart watch. The patient has been having daytime drowsiness and snoring so therefore she did undergo a sleep study back in 2022. At that point she was overweight. She has lost already like 30 lb since then. She is still having daytime drowsiness her [place] score is elevated 1124. She became concerned also because she had evidence of hypoxia during the sleep study. I did reassure her that it is normal to get some degree hypoxia at nighttime. In the meantime the patient on exam does have some clubbing. We did talk about the accuracy of pulse oximeter through her smart watch and will try to find another way to confirm it. In the meantime we did go for brief walking oximetry. The heart rate did increase to about 116 but her pulse ox was stable at 98%. We also had her lay down and check her oximetry and ruled out orthodeoxia. 09/07/2024 the patient is here for a pulmonary follow-up visit. Overall the patient has been doing okay. She still having those hypoxic episodes at nighttime when she is awake prior to going to bed. She did undergo a transesophageal echo to assess further or ancyo-hr-mdut shunt. 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 It was documented that she did have a small qbuvv-er-sooe shunt due to a very small PFO. The tvalr-qv-fdyv shunt was seen at rest and also with Valsalva maneuver. Explained to her that indeed some these oxygenating blood is getting through unlikely affecting her pulse ox some but not as much as she has been documented. In the meantime she does have some daytime drowsiness with an elevated [place] score of 11/24. She did have a home sleep study. No evidence of any significant sleep apnea although she did desaturate down to 85% and she spent more than 11 minutes below 88%. Therefore will go ahead and request an in-lab sleep study to better address his and also request end-tidal CO2 to monitor for any evidence of hypo ventilation. In addition to that we talked about perform pulmonary function studies to assess her gas exchange in extrinsic function of the lungs as far as her diffusing capacity. The patient also should undergo blood work. At this point will start with a venous gas to assess her pCO2. If indeed is abnormal will consider doing an ABG to assess her partial pressure of oxygen as well. If indeed we are concerned about the wroun-xb-grsb shunt we can always request a perfusion scan quantitative to assess the amount of potential shunting. For now we did talk about deep breathing exercises at nighttime. The patient will sleep on her side and avoid sleeping on her back to minimize the obstruction. After her PFTs in her sleep study she will follow-up for an appointment. If her blood work is abnormal I will call her for any additional recommendations then. 12/03/2024 the patient is here for a pulmonary follow-up visit. Overall the patient is doing about the same. She is still having episodes of hypoxia that she documents from her smart watch. She does have daytime drowsiness. Her [place] score is elevated /24. She does have history of sleep apnea. We did repeat her in-lab PSG. She did actually have mild sleep apnea. She desaturated down to about 91%. End-tidal CO2 were actually stable. In addition to that she did undergo pulmonary function studies the PFTs were completely normal with normal lung mechanics and normal diffusing capacity. No explanation for underlying hypoxia based on her pulmonary function. Indeed she did have a little bit of hypoxia based on her sleep study in her sleep apnea and therefore treating the sleep apnea will be important. The patient has tried CPAP in the past but she tried and failed. She did not tolerate it. 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 Will go ahead and refer her to a dentist who specializes and oral mandibular device in order to treat her underlying sleep apnea and hopefully hypoxia. In addition to that she has a PFO that is patent. In part this may be taking part in this issue with hypoxia. She will be following up with Cardiology. If further information is needed to see if this PFO is affecting her pulse ox will be reasonable to consider a chance study to better quantify the shunt. She will be following up with Cardiology and to can talk to them further to see if a shunt study will be helpful to better clarify the degree of something that may be occurring from the PFO. [facility] Medical History (Updated 09/07/24 @ 22:48 by Sang Andre MD) PFO (patent foramen ovale) Nocturnal hypoxia High dependence on smoking BERTHA (obstructive sleep apnea) Hypoxia Social History Patient Tobacco Use Status: Current everyday Tobacco user Tobacco use type: Cigarette Cigarettes Per Day: 12 Review of Systems Const Reports daytime sleepiness, Reports snoring and Reports weight loss Eyes Reports no additional complaints ENT Reports nasal congestion Card Denies chest pain and Reports palpitations Resp Reports snoring and Denies wheezing GI Reports no additional complaints Musc Reports no additional complaints Skin/Breast Denies rash Neuro Reports no additional complaints Endo Reports palpitations Peter/Lymph Reports no additional complaints Aller/Immun Denies wheezing Physical Exam Vital Signs: Last Vital Signs Pulse 82 12/03/24 14:29 BP 106/64 12/03/24 14:29 Pulse Ox 99 12/03/24 14:29 Oxygen Delivery Method Room Air 12/03/24 14:29 BMI result Body Mass Index 24.0 Const General: comfortable HEENT Head: Yes normocephalic Neck Neck: Yes supple Chest Chest palpation & inspection: normal inspection of the chest Resp Effort & Inspection: normal respiratory effort Auscultation: clear to auscultation bilaterally Cardio Heart sounds: S1 normal heart sound present, S2 normal heart sound present and no murmurs GI Palpation (GI): Soft to palpation Skin General skin exam: no rashes or lesions noted Extrem General: Yes clubbing, No cyanosis and No edema Assessment & Plan Assessment & Plan (1) Hypoxia: Code(s): R09.02 - Hypoxemia Category: Medical (2) BERTHA (obstructive sleep apnea): Code(s): G47.33 - Obstructive sleep apnea (adult) (pediatric) Category: Medical (3) High dependence on smoking: Code(s): F17.200 - Nicotine dependence, unspecified, uncomplicated Category: Social Hx (4) Nocturnal hypoxia: Code(s): G47.34 - Idiopathic sleep related nonobstructive alveolar hypoventilation Category: Medical (5) PFO (patent foramen ovale): Comment: small with small right to left shunt Code(s): Q21.12 - Patent foramen ovale Category: Medical Plan Still unclear why she is developing hypoxia while awake. PFTs are normal. Possible that the R to L intra-cardiac shunt could be playing a role in changes in position. Would recommend quantitative cardiac shunt study. She will talk to her patient relations director about further testing. smoking cessation Failed APAP, needs to have BERTHA treated. Has retronathia. Would benefit from a oral mandubular device. We will refer her to dental sleep specialist F/U 6 months Coding Level of Care Code Est Pt Level 4 (47855) Diagnoses Hypoxia R09.02 BERTHA (obstructive sleep apnea) G47.33 High dependence on smoking F17.200 Nocturnal hypoxia G47.34 PFO (patent foramen ovale) Q21.12 Time Spent (min) 16
== END 2024-12-03 14:58 | disposition home or self-care (01) ==
LOC: HO.HPS 13:42
PROVIDERS: PCP Pediatrics; Visit Provider Hospitalist
DX: R09.02 Hypoxemia (principal); G47.33 Obstructive sleep apnea (adult) (pediatric); F17.200 Nicotine dependence, unspecified, uncomplicated; G47.34 Idiopathic sleep related nonobstructive alveolar hypoventilation; Q21.12 Patent foramen ovale
CPT/HCPCS: 99214

== ENCOUNTER → 2025-01-26 13:24 | Outpatient (REF) | payer OTHER, SELFPAY ==
--- NOTE | ~2025-01-26 | NM_ITS ---
EXAMINATION: Nuclear medicine cardiac shunt detection CLINICAL INDICATION: Evaluate for patent foramina ovale. COMPARISON: None. TECHNIQUE: Following intravenous administration of 4 mCi of 99m technetium MAA flow/first pass study followed by static images were obtained over the chest. In addition static images were obtained over the whole body. NM/NM cardiac shunt detection IMPRESSION: Flow study there is isotope activity seen. Left subclavian vein to the myocardium. No activity seen from right to left chambers especially no activity seen in the neck or cranial cavity. On static images there is complete isotope activity seen in the lungs just like a lung perfusion study. No activity seen intracranially. On the lung perfusion study there is no focal defects seen. IMPRESSION: There is no evidence of right to left cardiac shunt seen on first pass/flow as well as on delayed images at this time. Electronically signed by: Mak Colunga MD 01/28/2025 07:12 AM [facility]
== END ==
LOC: HO.NUCMED 13:24
PROVIDERS: PCP Pediatrics; Visit Provider Hospitalist
DX: Q21.12 Patent foramen ovale (principal); R09.02 Hypoxemia
CPT/HCPCS: 78428; A9540

== ENCOUNTER → 2025-01-26 13:28 | Outpatient (BNV) | payer OTHER, SELFPAY | PROVIDERS: PCP Pediatrics; Visit Provider Radiology Diagnostic Radiology | DX: Q21.12 Patent foramen ovale (principal) | CPT/HCPCS: 78428 ==